=== PATIENT | female | born 1960 | race Caucasian/White ===

== ENCOUNTER 2018-01-02 13:06 | Emergency (ER) | payer OTHER ==
[2018-01-02] MEDS ORDERED: diphenhydrAMINE 50 MG/ML SDV IM ONE (14:33)
--- NOTE | 2018-01-02 15:05 | EDM.PDOC ---
Scribed by Erendira Thomas 01/02/18 [id number] for Rodríguez Puga PA ED HPI GENERAL MEDICAL PROBLEM - General Chief Complaint: Allergic Reaction Stated Complaint: REACTION TO A PLANT Time Seen by Provider: 01/02/18 14:29 Source of Information: Reports: Patient, RN, RN Notes Reviewed History Limitations: Reports: No Limitations - History of Present Illness INITIAL COMMENTS - FREE TEXT/NARRATIVE: Patient is a 57-year-old female who was pulling weeds yesterday and started having a tingling of her right forearm and a little bit on the left forearm. It was a stinging nettle exposure. She tried Benadryl cream but did not help. Onset Date: 01/01/18 Duration: Constant Location: Reports: Upper Extremity, Right Quality: Reports: Ache Severity: Mild Improves with: Reports: None Worsens with: Reports: None Associated Symptoms: Reports: No Other Symptoms Right Arm Pain Score (Numeric/FACES): 4 - Related Data Allergies Allergy/AdvReac Type Severity Reaction Status Date / Time Penicillins Allergy Severe Airway Verified 01/02/18 13:39 Tightness Home Meds: Home Meds Aspirin [Ecotrin] 81 mg PO DAILY 10/19/17 [History] Cholecalciferol (Vitamin D3) [Vitamin D3] 5,000 unit PO DAILY 10/19/17 [History] Cyanocobalamin (Vitamin B12) [Vitamin B12] 1,000 mcg PO DAILY 10/19/17 [History] Estradiol 1 patch TOP WEEKLY 10/19/17 [History] Fexofenadine HCl [Digna Allergy] 60 mg PO DAILY 10/19/17 [History] Magnesium 250 mg PO DAILY 10/19/17 [History] Naproxen 500 mg PO DAILY 10/19/17 [History] Pantoprazole Sodium [Protonix] 40 mg PO DAILY 10/19/17 [History] Sertraline HCl 50 mg PO DAILY 10/19/17 [History] Past Medical History - Past Health History Medical/Surgical History: Denies Medical/Surgical History HEENT History: Reports: Impaired Vision Other HEENT History: wears glasses Gastrointestinal History: Reports: GERD Genitourinary History: Reports: None Musculoskeletal History: Reports: None Neurological History: Reports: Vertigo Psychiatric History: Reports: None Endocrine/Metabolic History: Reports: Vitamin D Deficiency Hematologic History: Reports: None Immunologic History: Reports: None Oncologic (Cancer) History: Reports: None - Past Surgical History Head Surgeries/Procedures: Reports: None Female Surgical History: Reports: Hysterectomy Neurological Surgical History: Reports: C-Spine Social & Family History - Caffeine Use Caffeine Use: Reports: Soda - Recreational Drug Use Recreational Drug Use: No - Living Situation & Occupation Living situation: Reports: with Family ED ROS ALLERGIC REACTION - Review of Systems Review Of Systems: ROS reveals no pertinent complaints other than HPI. ED EXAM GENERAL NO PERIP PULSE - Physical Exam Exam: See Below Exam Limited By: No Limitations General Appearance: Alert, WD/WN, No Apparent Distress Eye Exam: Bilateral Eye: EOMI, Normal Inspection, PERRL Ears: Normal External Exam, Normal Canal, Hearing Grossly Normal, Normal TMs Nose: Normal Inspection, Normal Mucosa, No Blood Throat/Mouth: Normal Inspection, Normal Lips, Normal Teeth, Normal Gums, Normal Oropharynx, Normal Voice, No Airway Compromise Head: Atraumatic, Normocephalic Neck: Normal Inspection, Supple, Non-Tender, Full Range of Motion Respiratory/Chest: No Respiratory Distress, Lungs Clear, Normal Breath Sounds, No Accessory Muscle Use, Chest Non-Tender Cardiovascular: Normal Peripheral Pulses, Regular Rate, Rhythm, No Edema, No Gallop, No JVD, No Murmur, No Rub GI/Abdominal: Normal Bowel Sounds, Soft, Non-Tender, No Organomegaly, No Distention, No Abnormal Bruit, No Mass (Female) Exam: Deferred Rectal (Female) Exam: Deferred Back Exam: Normal Inspection, Full Range of Motion, NT Extremities: Other (She has a small erythematous area on her right distal ulna. ) Neurological: Alert, Oriented, CN II-XII Intact, Normal Cognition, Normal Gait, Normal Reflexes, No Motor/Sensory Deficits Psychiatric: Normal Affect, Normal Mood Lymphatic: No Adenopathy Course - Vital Signs Last Recorded V/S: Last Vital Signs Temp 36.6 C 01/02/18 13:35 Pulse 86 01/02/18 13:35 Resp 16 01/02/18 13:35 BP 146/80 H 01/02/18 13:35 Pulse Ox 99 01/02/18 13:35 - Orders/Labs/Meds Meds: Medications Discontinued Medications Generic Name Dose Route Start Last Admin Trade Name Freq PRN Reason Stop Dose Admin Diphenhydramine HCl 50 mg 01/02/18 14:33 01/02/18 14:38 Benadryl IM 01/02/18 14:34 50 mg ONETIME ONE Administration Departure - Departure Time of Disposition: 15:02 Disposition: Home, Self-Care 01 Condition: Fair Clinical Impression: Allergic reaction Qualifiers: Encounter type: initial encounter Qualified Code(s): T78.40XA - Allergy, unspecified, initial encounter - Discharge Information *PRESCRIPTION DRUG MONITORING PROGRAM REVIEWED*: Not Applicable *COPY OF PRESCRIPTION DRUG MONITORING REPORT IN PATIENT [place]: Not Applicable Forms: ED Department Discharge Care Plan Goals: The patient was advised of the examination results during the visit. The patient was given an injection of Benadryl while in the ED. The patient was encouraged to continue to take Banadryl (25 mg) every 6 hours for the next 2-3 days. The patient should avoid contact with [place]. If the patient has any additional symptoms or concerns, the patient may either return to the emergency department or follow-up with her primary care facility. I have read and agree with the documentation that has been completed regarding this visit. By signing this record, I attest that the documentation was completed in my physical presence and is an accurate record of the encounter.
== END 2018-01-02 15:08 | disposition home or self-care (01) ==
LOC: DL.ED 13:06
DX: T78.49XA Other allergy, initial encounter (principal); L53.9 Erythematous condition, unspecified; Z79.82 Long term (current) use of aspirin; Z79.899 Other long term (current) drug therapy; Z88.0 Allergy status to penicillin
CPT/HCPCS: 96372; 99283; J1200

== ENCOUNTER 2023-08-17 05:59 | Day surgery (SDC) | payer MEDICARE ==
[2023-08-17] MEDS ORDERED: Midazolam 1 MG/ML 2 ML SDV IV ONE (06:00)
[2023-08-17] MEDS ORDERED: fentaNYL 100 MCG/2 ML SDV IV ONE (06:00)
[2023-08-17] MEDS ORDERED: Midazolam 1 MG/ML 2 ML SDV ONE (06:09)
[2023-08-17] MEDS ORDERED: fentaNYL 100 MCG/2 ML SDV ONE (06:09)
[2023-08-17] MEDS: Dextrose 5%-0.45% NaCl 1,000 ML IV SCH (06:29)
[2023-08-17] MEDS: fentaNYL 100 MCG/2 ML SDV IV ONE ×2 (07:11→07:12)
[2023-08-17] MEDS: Midazolam 1 MG/ML 2 ML SDV IV ONE ×2 (07:12→07:13)
== END 2023-08-17 09:00 | disposition home or self-care (01) ==
LOC: DL.ENDO 05:59
PROVIDERS: ATTEND Internal Medicine Gastroenterology
DX: R12 Heartburn (principal); R07.89 Other chest pain; G47.33 Obstructive sleep apnea (adult) (pediatric); E66.01 Morbid (severe) obesity due to excess calories; Z68.41 Body mass index [BMI] 40.0-44.9, adult; Z87.891 Personal history of nicotine dependence
CPT/HCPCS: 43239; 87077; 88305; J2250; J3010; J7042

== ENCOUNTER 2023-09-21 05:50 | Day surgery (SDC) | payer MEDICARE ==
[2023-09-21] MEDS ORDERED: Midazolam 1 MG/ML 2 ML SDV ONE ×2 (06:09→06:12)
[2023-09-21] MEDS ORDERED: fentaNYL 100 MCG/2 ML SDV ONE ×2 (06:09→06:12)
[2023-09-21] MEDS: Dextrose 5%-0.45% NaCl 1,000 ML IV SCH (06:12)
[2023-09-21] MEDS: fentaNYL 100 MCG/2 ML SDV IV ONE ×4 (07:03→07:12)
[2023-09-21] MEDS: Midazolam 1 MG/ML 2 ML SDV IV ONE ×6 (07:04→07:10)
== END 2023-09-21 09:20 | disposition home or self-care (01) ==
LOC: DL.ENDO 05:50
PROVIDERS: ATTEND Internal Medicine Gastroenterology
DX: Z12.11 Encounter for screening for malignant neoplasm of colon (principal); K57.30 Diverticulosis of large intestine without perforation or abscess without bleeding; K21.9 Gastro-esophageal reflux disease without esophagitis; F32.A Depression, unspecified; G47.33 Obstructive sleep apnea (adult) (pediatric); E66.01 Morbid (severe) obesity due to excess calories; Z68.41 Body mass index [BMI] 40.0-44.9, adult; Z79.899 Other long term (current) drug therapy
CPT/HCPCS: J2250; J3010; J7042